=== PATIENT | female | born 1990 | race African-American/Black ===

== ENCOUNTER 2017-10-28 21:08 | Emergency (ER) | payer OTHER ==
[~2017-10-28] VITALS: Ht 160 cm; Wt 59.0 kg
--- NOTE | ~2017-10-28 | EKG ---
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
[~2017-10-28 21:08] MED LIST: BACTRIM DS TAB1 EACH PO; CARAFATE 11 GM/10 M1 PO; CLINDAMYCIN HC150 MG PO; NEXPLANON68 MG SQ; NOHOMEMEDICATIONS; NORCO 5-325 TA1 EACH PO; PRILOSEC 20 MG20 MG PO; ZOFRAN ODT4 MG PO
[2017-10-28] MEDS ORDERED: TYLENOL W/CODEI1 TA2 PO (22:43)
[2017-10-28] MEDS ORDERED: NAPROSYN500 MG PO (23:45)
[2018-02-15] MEDS ORDERED: MOBIC7.5 MG PO (21:30)
[2018-02-15] MEDS ORDERED: NORFLEX100 MG PO (21:30)
== END 2017-10-28 23:50 | disposition home or self-care (01) ==
LOC: ER 21:08
DX: R07.89 Other chest pain (principal); Z87.891 Personal history of nicotine dependence

== ENCOUNTER 2018-04-23 13:57 | Emergency (ER) | payer OTHER ==
[~2018-04-23] VITALS: Ht 160 cm; Wt 68.0 kg
[~2018-04-23 13:57] MED LIST changes: +MOBIC7.5 MG PO; +NAPROSYN500 MG PO; +NORFLEX100 MG PO; +TYLENOL W/CODEI1 TA2 PO
[2018-04-23 14:04] VITALS: BP 128/84
[2018-04-23] MEDS ORDERED: CYCLOBENZAPRINE5 MG PO (14:48)
[2018-04-23] MEDS ORDERED: PREDNISONE 20 M20 MG PO (14:48)
[2018-04-23] MEDS ORDERED: NORCO 10-325 T1 EACH PO (14:48)
== END 2018-04-23 14:58 | disposition home or self-care (01) ==
LOC: ER 13:57
DX: M54.32 Sciatica, left side (principal); Z87.891 Personal history of nicotine dependence